=== PATIENT | female | born 1975 | race Caucasian/White ===

== ENCOUNTER 2024-12-03 05:44 | Day surgery (SDC) | payer BC ==
[2024-11-28 13:22] VITALS: BMI 36.0
[~2024-12-03 05:44] MED LIST: TRANEXAMIC 1,000 MG/100ML-NACL 1,000 MG in SALINE 1 100ML.BAG IVPB PRN
[2024-12-03] MEDS: IV FLUID CONTINUATION 1,000 ML IV ONE (06:09)
[2024-12-03 06:25] VITALS: RESP 16
[2024-12-03] MEDS: LACTATED RINGERS 1,000 ML IV SCH (06:40)
[2024-12-03] MEDS: MELOXICAM 7.5 MG TAB PO PRN (06:41)
[2024-12-03] MEDS: ONDANSETRON 4 MG/2 ML VIAL IVP ONE (06:41)
[2024-12-03] MEDS: ACETAMINOPHEN TAB 500 MG TAB PO PRN (06:41)
[2024-12-03] MEDS: DEXAMETHASONE SOD PHOSPHATE 4 MG/ML 1 ML VIAL IV ONE (06:41)
[2024-12-03] MEDS: MIDAZOLAM 2 MG/2 ML VIAL IVP ONE (06:54)
[2024-12-03] MEDS: fentaNYL (PF) 50 MCG/1 ML VIAL IVP ONE (06:54)
[2024-12-03] MEDS: MIDAZOLAM 2 MG/2 ML VIAL IV ONE (06:55)
[2024-12-03] MEDS: fentaNYL (PF) 50 MCG/ML 2 ML AMP IVP PRN (07:23)
--- NOTE | 2024-12-03 07:29 | HP ---
HISTORY AND PHYSICAL DATE OF SURGERY: 12/03/2024. HISTORY OF PRESENT ILLNESS: Roxana Mendez is a 49-year-old patient, seen with symptomatic right knee osteoarthritis. After having treatment options discussed, elected to proceed with right total knee arthroplasty. Consent obtained. PAST MEDICAL HISTORY: Anxiety. SURGICAL HISTORY: section, hysterectomy, knee arthroscopy. DAILY MEDICATIONS: 1. Motrin. 2. Zoloft. 3. Celebrex. 4. Tylenol. ALLERGIES: None. SOCIAL HISTORY: She denies tobacco use. PHYSICAL EXAMINATION: Evaluation of the right knee range of motion is -2 to 120. Mild effusion. Tenderness along the medial and lateral joint lines. Crepitus medial, lateral, and patellofemoral compartments. Pain with patellofemoral compression. Ligament stable. Hip rotation without pain. Distal neurovascular exam is intact. IMAGING STUDIES: Radiographs of the right knee reveal severe osteoarthritis. MRI of right knee reveals severe osteoarthritis. IMPRESSION: Right knee osteoarthritis. PLAN: Right total knee arthroplasty. MMODL / IJN: [id number] /
[2024-12-03] MEDS ORDERED: NEOSTIGMINE 1 MG/ML 10 ML VIAL ONE (07:35)
[2024-12-03] MEDS ORDERED: SUCCINYLCHOLINE CHLORIDE 200 MG/10 ML VIAL IV ONE (07:35)
[2024-12-03] MEDS ORDERED: SODIUM CHLORIDE 0.9% (PF) 10 ML VIAL ONE (07:35)
[2024-12-03] MEDS ORDERED: LIDOCAINE 1% INJ 10MG/ML (20 ML MDV) ONE (07:35)
[2024-12-03] MEDS ORDERED: PROPOFOL 10 MG/ML 20 ML VIAL IV ONE (07:35)
[2024-12-03] MEDS ORDERED: TRANEXAMIC 1,000 MG/100ML-NACL PREMIX BAG ONE (07:35)
[2024-12-03] MEDS ORDERED: GLYCOPYRROLATE 0.2 MG/ML 2 ML VIAL ONE (07:35)
[2024-12-03] MEDS ORDERED: ROCURONIUM 10 MG/ML (5 ML VIAL) IV ONE (07:35)
[2024-12-03] MEDS ORDERED: MIDAZOLAM 2 MG/2 ML VIAL ONE (07:35)
[2024-12-03] MEDS ORDERED: HYDROmorphone (PF) 1 MG/ML ONE (07:35)
[2024-12-03] MEDS ORDERED: ROPIVACAINE 5 MG/ML 30 ML VIAL ONE (07:35)
[2024-12-03] MEDS ORDERED: DEXAMETHASONE SOD PHOSPHATE 4 MG/ML 1 ML VIAL ONE (07:35)
[2024-12-03] MEDS ORDERED: fentaNYL (PF) 50 MCG/ML 2 ML AMP ONE (07:35)
[2024-12-03] MEDS: ceFAZolin 2 GM in DEXTROSE 5% IN WATER 50 ML IVPB PRN (07:40)
[2024-12-03] MEDS: ceFAZolin 1,000 MG in SODIUM CHLORIDE 0.9% 1,000 ML IRRIGATION ONE (07:59)
[2024-12-03] MEDS: LACTATED RINGERS 1,000 ML IV ONE (09:31)
--- NOTE | 2024-12-03 09:35 | P.OP ---
Date of Procedure: 12/03/24 Preoperative Diagnosis: Right knee osteoarthritis Postoperative Diagnosis: Right knee osteoarthritis Procedure(s) Performed: Right total knee arthroplasty Implants: 1. DePuy attune size 5 right cruciate retaining cemented femur 2. DePuy attune size 4 fixed-bearing cemented tibial baseplate 3. DePuy attune size 5 fixed-bearing cruciate retaining 8 mm polyethylene tibial insert 4. DePuy attune 35 mm all polyethylene cemented patella Anesthesia: [facility], regional Surgeon: Vaughn rosado) [employer]house Distribution Manager #1: Eric Whiteside Estimated Blood Loss (ml): 45 Pathology: none sent Condition: stable Disposition: PACU Indications for Procedure: 49-year-old patient seen with symptomatic right knee osteoarthritis. After having treatment were discussed, she elected to proceed with total knee arthroplasty. Operative Findings: See description of procedure Description of Procedure: Patient was taken to the operative suite after having an adductor canal catheter placed by the department of anesthesia. Patient underwent a femoral anesthetic by the department of anesthesia. Patient was given preoperative IV intake antibiotics and TXA. A well-padded tourniquet was placed about the right lower extremity. The lower extremity was then prepped and draped in the normal sterile orthopedic fashion. The extremity was elevated, a tourniquet was insufflated to 300. A standard anterior incision was made sharply through skin. Dissection was taken down through the subcutaneous soft tissues down to the extensor mechanism. A medial arthrotomy was performed, patella was everted and knee was flexed. There was advanced osteoarthritis noted. I introduced my distal intramedullary femoral drill. I then introduced the distal femoral cutting jig. Pieter FOOTE secured the cutting jig with 2 pins. I held retractors in position while Pieter FOOTE performed the distal femoral resection through the guide area we now removed her distal femoral cutting guide. We now placed our 4-in-1 femoral cutting block and positioned and it was secured with 2 pins by Pieter FOOTE while I held the block in position. The distal femoral finishing was now completed. A proximal tibial cutting guide was positioned. I held the guide in the appropriate position with both hands well Pieter FOOTE inserted stabilizing pins into the guide. Proximal tibial cut was made. We now placed a trial femoral component into position, along with an appropriate size tibial tray and insert. We now took the knee through range of motion and had full extension good flexion and good overall soft tissue balance noted. The patella was everted and stabilized with 2 towel clips held by Pieter FOOTE while I performed a flush with patellar quad tendon utilizing a fresh sawblade. We templated the patella, appropriate drill holes were made. An appropriate trial patella was positioned, knee was taken through full range of motion with the patella tracking very nicely. The trial patella was removed. Drill holes were made through the femoral component. All trial components were removed after marking off the appropriate rotation of the tibia. Retractors were now positioned along the proximal tibia. An appropriate keel punch was made with the appropriate size tibial guide by myself on Pieter FOOTE assisted by holding retractors. At this point appropriate size implants were chosen and opened. The joint was irrigated copiously with pulse lavage mechanical irrigation. The wound was irrigated with pulse lavage mechanical irrigation. We mixed antibiotic methylmethacrylate. We placed the knee into flexion. We placed multiple retractors assisted by Pieter FOOTE to expose the proximal tibia. Once the methyl methacrylate was ready, the tibial component was cemented into place removing any excess methylmethacrylate form by both myself and Pieter FOOTE. The femoral component was cemented into place removing the removing any excess methylmethacrylate performed by both myself and Pieter FOOTE. We then inserted the appropriate size polyethylene tibial insert. We made sure that it was locked into position. We took the knee into full extension, and then back in a flexion making sure we had removed any excess methylmethacrylate. The patellar component was then cemented down and secured with clamp. Excess methylmethacrylate removed. We kept the knee in full exte nsion, patellar clamp in position until methylmethacrylate had hardened. Once it had hardened the patellar clamp was removed. The knee was taken through full range of motion. The patella tracked nicely. There was good soft tissue balancing. The tourniquet was now released. Additional hemostasis was achieved via electrocautery. A second gram of TXA was given. The wound again was irrigated with pulse lavage mechanical irrigation. The extensor mechanism was repaired with Ethibond suture. We checked the repair with range of motion and it was stable. The subcutaneous soft tissues were repaired with Vicryl in layers. The skin was approximated with pernio/Dermabond. Sterile dressings were applied followed by loose web roll and Fahad bandage. The patient was transferred to a bed, and taken to recovery in stable and satisfactory condition. Pieter FOOTE assisted with this complex procedure.
[2024-12-03] MEDS ORDERED: LACTATED RINGERS 1,000 ML IV ONE (09:36)
[2024-12-03] MEDS ORDERED: HYDROmorphone 1 MG/ML 1 ML SYRINGE IVP PRN (09:36)
[2024-12-03] MEDS ORDERED: HYDROcodone/APAP 5-325MG 1 EACH TAB PO PRN (09:36)
[2024-12-03] MEDS ORDERED: NALOXONE 0.4 MG/ML 1 ML VIAL IV PRN (09:36)
[2024-12-03] MEDS ORDERED: HYDROmorphone 0.5 MG/0.5 ML SYRINGE IVP PRN ×2 (09:36)
[2024-12-03] MEDS ORDERED: ONDANSETRON 4 MG/2 ML VIAL IVP PRN (09:36)
[2024-12-03] MEDS: HYDROmorphone 0.5 MG/0.5 ML SYRINGE IVP PRN (10:05)
[2024-12-03 10:18] VITALS: TEMP 97.1
[2024-12-03] MEDS: ROPIVACAINE 1,100 MG, SODIUM CHLORIDE 0.9% 500 ML 330 ML, EMPTY PAIN BALL 1 EACH MISCELLANE PRN (10:26)
--- NOTE | 2024-12-03 10:48 | P.ANPRN ---
Procedure Note - Anesthesia - Nerve Block Performed Right Adductor Canal Infusion Time Out Performed: Yes ([id number]) Date of Procedure: 12/03/24 Procedure Start Time: 06:54 Procedure Stop Time: 06:59 Location of Patient: PreOp Indication: Acute Post-Operative Pain, Requested by Surgeon Specifically requested for management of pain by DrPrem: Vaughn Painter Sedation Type: Sedate with meaningful contact maintained Preparation: Sterile Prep, Sterile Dressing Position: Supine Catheter Depth at Skin (cm): 7 Catheter: Indwelling Needle Types: Pajunk Needle Gauge: 18 Ultrasound used to visualize needle placement: Yes Ultrasound used to observe medication spread: Yes Injectate: 0.5% Ropivacaine (see comment for volume) (15cc+5cc nacl pf+decadron 4mg) Blood Aspirated: No Pain Paresthesia on Injection Noted: No Resistance on Injection: Normal Image Stored and Saved: Yes Events: Uneventful and Well Tolerated
--- NOTE | 2024-12-03 10:48 | P.ANPRN ---
Procedure Note - Anesthesia - Nerve Block Performed Right iPack Single Time Out Performed: Yes ([id number]) Date of Procedure: 12/03/24 Procedure Start Time: :00 Procedure Stop Time: : Location of Patient: PreOp Indication: Acute Post-Operative Pain, Requested by Surgeon Specifically requested for management of pain by DrPrem: Vaughn Painter Sedation Type: Sedate with meaningful contact maintained Preparation: Sterile Prep Position: Supine Catheter: None Needle Types: Pajunk Needle Gauge: 21 Ultrasound used to visualize needle placement: Yes Ultrasound used to observe medication spread: Yes Injectate: 0.5% Ropivacaine (see comment for volume) (15cc+5cc nacl pf+decadron 4mg) Blood Aspirated: No Pain Paresthesia on Injection Noted: No Resistance on Injection: Normal Image Stored and Saved: Yes Events: Uneventful and Well Tolerated
--- NOTE | 2024-12-03 11:04 | XR ---
EXAMINATION TYPE: XR knee limited RT DATE OF EXAM: 12/03/2024 10:53 AM COMPARISON: None. CLINICAL INDICATION: Female, 49 years old with history of Evaluation for Postop abnormality and align ment, pain TECHNIQUE: 2 view(s) obtained. FINDINGS: Tibial and femoral components in place. No acute fracture or dislocation evident post knee replacemen t. Postsurgical soft tissue changes are evident. IMPRESSION: 1. No acute fracture post knee replacement. [facility], , 12/03/2024 11:02 AM
[2024-12-03] MEDS: droPERidol 2.5 MG/ML VIAL IVP ONE (11:05)
[2024-12-03] MEDS: ceFAZolin 2 GM in DEXTROSE 5% IN WATER 50 ML IVPB ONE (11:55)
[2024-12-03] MEDS: HYDROcodone/APAP 7.5-325MG 1 EACH TAB PO PRN (13:24)
[2024-12-03 14:21] VITALS: BP 149/92; PULSE 94
== END 2024-12-03 14:57 | disposition home health service (06) ==
LOC: OR 05:44
PROVIDERS: ATTEND Orthopaedic Surgery
DX: M17.11 Unilateral primary osteoarthritis, right knee (principal); G89.18 Other acute postprocedural pain; F41.9 Anxiety disorder, unspecified; K21.9 Gastro-esophageal reflux disease without esophagitis; Z79.1 Long term (current) use of non-steroidal anti-inflammatories (NSAID); Z79.899 Other long term (current) drug therapy
CPT/HCPCS: 27447; 97161; 64448; 64473; 73560; C1776; C1713 ×2; C1751; J2250; J0330; J1100; J2710; J0690 ×2; J2405; J2003; J3010 ×2; J1171 ×2; J2795; J2704; J1596; J1790; 64474